=== PATIENT | male | born 1965 ===

== ENCOUNTER 2016-06-22 07:52 | Emergency (ER) | payer OTHER ==
[2016-06-22 08:02] VITALS: BP 118/82; PULSE 80; RESP 16; TEMP 99.5; O2SAT 97
[2016-06-22] MEDS ORDERED: Naproxen 550 mg Tab PO STA (08:15)
--- NOTE | 2016-06-22 08:26 | ED PDOC ---
Arrival/HPI - General Chief Complaint: Upper Extremity Problem/Injury Time Seen by Provider: 06/22/16 08:12 Historian: Patient - History of Present Illness Narrative History of Present Illness (Text): 06/22/16 08:24 50 year old male presents to the emergency department with bilateral shoulder pain after pulling a cable this morning. No fever or other complaints. Time/Duration: Prior to Arrival Symptom Onset: Sudden Symptom Course: Unchanged Modifying Factors (Text): None Associated Symptoms (Text): None Past Medical History - Provider Review Nursing Documentation Reviewed: Yes - Infectious Disease Hx of Infectious Diseases: None - Cardiac Hx Cardiac Disorders: No Hx Hypertension: No Hx Pacemaker: No - Pulmonary Hx Respiratory Disorders: No Hx Asthma: No Hx Chronic Obstructive Pulmonary Disease (COPD): No Hx Emphysema: No - Neurological HX Cerebrovascular Accident: No Hx Dementia: No Hx Seizures: No - Renal Hx Renal Disorder: No - Hematological/Oncological Hx Cancer: No - Musculoskeletal/Rheumatological Hx Falls: No - Gastrointestinal Hx Gastroesophageal Reflux: No - Psychiatric Hx Depression: No Hx Emotional Abuse: No Hx Physical Abuse: No Hx Substance Use: No - Anesthesia Hx Anesthesia: No - Suicidal Assessment Feels Threatened In Home Enviroment: No Family/Social History - Physician Review Nursing Documentation Reviewed: Yes Family/Social History: Unknown Family HX Smoking Status: Unknown If Ever Smoked Hx Alcohol Use: Yes (SOCIALLY) Hx Substance Use: No Hx Substance Use Treatment: No Allergies/Home Meds Allergies/Adverse Reactions: Allergies No Known Allergies Allergy (Verified 07/03/11 10:57) Review of Systems - Review of Systems Constitutional: absent: Fevers Respiratory: absent: SOB Cardiovascular: absent: Chest Pain Musculoskeletal: Other (Bilateral shoulder pain) Skin: absent: Rash Neurological: absent: Dizziness Endocrine: absent: Diaphoresis Physical Exam Vital Signs Reviewed: Yes Vital Signs Temp Pulse Resp BP Pulse Ox 06/22/16 07:57 99.5 F 80 16 118/82 97 06/22/16 07:52 99.5 F 80 16 118/82 97 Temperature: Afebrile Blood Pressure: Normal Pulse: Regular Respiratory Rate: Normal Appearance: Positive for: Well-Appearing, Non-Toxic, Comfortable Pain Distress: None Mental Status: Positive for: Alert and Oriented X 3 - Systems Exam Head: Present: Atraumatic, Normocephalic Conjunctiva: Present: Normal Mouth: Present: Moist Mucous Membranes Neck: Present: Normal Range of Motion Upper Extremity: Present: Tenderness (Bilateral shoulder tenderness) Neurological: Present: GCS=15, CN II-XII Intact, Speech Normal Skin: Present: Warm, Dry, Normal Color. No: Rashes Psychiatric: Present: Alert, Oriented x 3, Normal Insight, Normal Concentration Medical Decision Making ED Course and Treatment: Impression: 50 year old male presents to the emergency department with bilateral shoulder pain after pulling a cable this morning. Differential Diagnosis include but are not limited to: Plan: -- XR's of left and right shoulder -- Naproxen -- Reassess and disposition Progress Notes: - RAD Interpretation Radiology Orders: 06/22/16 08:14 SHOULDER LEFT [RAD] Stat SHOULDER RIGHT [RAD] Stat - Medication Orders Current Medication Orders: Discontinued Medications Naproxen (Anaprox Ds) 550 mg PO STAT STA Stop: 06/22/16 08:16 - Scribe Statement The provider has reviewed the documentation as recorded by the Maya Dow Provider Scribe Attestation: All medical record entries made by the Scribe were at my direction and personally dictated by me. I have reviewed the chart and agree that the record accurately reflects my personal performance of the history, physical exam, medical decision making, and the department course for this patient. I have also personally directed, reviewed, and agree with the discharge instructions and disposition. Disposition/Present on Arrival - Present on Arrival Any Indicators Present on Arrival: No History of DVT/PE: No History of Uncontrolled Diabetes: No Urinary Catheter: No History of Decub. Ulcer: No History Surgical Site Infection Following: None - Disposition Have Diagnosis and Disposition been Completed?: Yes Diagnosis: Shoulder strain Disposition: HOME/ ROUTINE Disposition Time: 08:59 Condition: STABLE Discharge Instructions (ExitCare): Shoulder Sprain (ED) Additional Instructions: please follow up with your doctor. return to er with worsening symptoms or concerns. please see specialist. Prescriptions: Naproxen 500 mg PO BID PRN #14 tab PRN Reason: Pain, Mild (1-3) Referrals: Juan M Bai MD [Primary Care Provider] - Follow up with primary Mikey Rodas DO [Staff Provider] - Follow up with primary
--- NOTE | 2016-06-22 10:09 | RAD ---
PROCEDURE: Radiographs of the Left Shoulder HISTORY: trauma COMPARISON: No prior. FINDINGS: BONES: Normal. No fracture. JOINTS: Normal. Glenohumeral and acromioclavicular joints preserved. No osteoarthritis. SOFT TISSUES: Normal. OTHER FINDINGS: None. IMPRESSION: Normal radiographs of the left shoulder.
--- NOTE | 2016-06-22 10:10 | RAD ---
PROCEDURE: Radiographs of the Right Shoulder HISTORY: trauma COMPARISON: No prior. FINDINGS: BONES: Normal. No fracture. JOINTS: Normal. Glenohumeral and acromioclavicular joints preserved. No osteoarthritis. SOFT TISSUES: Normal. OTHER FINDINGS: None. IMPRESSION: Normal radiographs of the right shoulder.
== END 2016-06-22 09:17 | disposition home or self-care (01) ==
LOC: ED 07:52
DX: S46.912A Strain of unspecified muscle, fascia and tendon at shoulder and upper arm level, left arm, initial encounter (principal); S46.911A Strain of unspecified muscle, fascia and tendon at shoulder and upper arm level, right arm, initial encounter; X50.9XXA Other and unspecified overexertion or strenuous movements or postures, initial encounter